=== PATIENT | male | born 1970 | race Caucasian/White ===

== ENCOUNTER 2022-12-25 03:51 | Inpatient (IN) ==
[2022-12-25] MEDS ORDERED: Ondansetron 4 mg VIAL 2 MG/ML 2 ml VIAL IV PRN (04:58)
[2022-12-25] MEDS: Pantoprazole 80 mg in NS BAG 80 MG/250 ML BAG IV SCH ×2 (06:07→16:03)
[2022-12-25 06:16] LABS: ABS Basophils 0.1 10^3/uL (0.0-0.1); ABS Monocytes 0.8 10^3/uL (0.0-1.1); ABS Neutrophils 9.9 10^3/uL (1.5-7.6); ABS Nucleated RBC 0.01 10^3/ul; Eosinophil % 0.2 %; Hematocrit 27.8 % (38-53); Hemoglobin 9.5 g/dL (13.2-16.3); Lymphocyte % 15.7 %; Mean Corpuscular Hemoglobin 28.9 pg (27-33); Mean Corpuscular Hgb Conc 34.1 g/dL (31-36); Mean Platelet Volume 6.5 fL (7.5-11.2); Nucleated Red Blood Cells % 0.1 /100 WBC (0.0-0.4); Platelet Count 204 10^3/uL (150-450); Red Blood Count 3.27 10^6/uL (4.06-5.63); Red Cell Distribution Width 16.8 % (12-17); White Blood Count 12.8 10^3/uL (3.6-10.2)
[2022-12-25] MEDS ORDERED: Flumazenil 0.5 mg/5 ml 0.1 MG/ML 5 ml VIAL IV PRN (10:24)
[2022-12-25] MEDS ORDERED: Lactated Ringers 1000 ml BAG 1,000 ML IV ONE (10:24)
[2022-12-25] MEDS ORDERED: Midazolam 10 mg/10 ml VIAL 1 mg/ml 10 ml VIAL (10 mg) IV SLOW PU ONE (10:24)
[2022-12-25] MEDS ORDERED: Naloxone 0.4 mg VIAL 0.4 mg/ml 1 ml VIAL IV PUSH PRN (10:24)
[2022-12-25] MEDS ORDERED: Lidocaine 2% JELLY 6 ML Topical TOPICAL ONE (10:24)
[2022-12-25] MEDS ORDERED: Ondansetron 4 mg VIAL 2 MG/ML 2 ml VIAL IV ONE (10:24)
[2022-12-25] MEDS ORDERED: fentaNYL 100 mcg/2 ml 50 MCG/ML VIAL IV SLOW PU ONE (10:24)
[2022-12-25 11:59] LABS: Urine Appearance Clear; Urine Bilirubin Negative (Negative); Urine Blood Negative (Negative); Urine Color Amber; Urine Glucose Negative (Negative); Urine Ketones Trace (Negative); Urine Nitrite Negative (Negative); Urine Protein 2+(100 mg/dL) (Negative); Urine Specific Gravity 1.029 (1.002-1.030); Urine Urobilinogen Negative (Negative)
[2022-12-25 12:16] LABS: Urine Bacteria Absent (Absent); Urine Red Blood Cell Trace(0-2/hpf) (Absent); Urine Squamous Epithelial Cell Present (Absent); Urine White Blood Cell Trace(0-5/hpf) (Absent)
[2022-12-25 12:29] LABS: Hematocrit 26.3 % (38-53); Hemoglobin 9.1 g/dL (13.2-16.3)
[2022-12-25 12:55] LABS: Albumin 2.2 g/dL (3.2-5.2); Calcium 7.1 mg/dL (8.6-10.3); Potassium 3.7 mmol/L (3.5-5.0); Total Bilirubin 0.9 mg/dL (0.2-1.0)
[2022-12-25 13:00] LABS: Creatinine, Serum 0.68 mg/dL (0.67-1.17); Globulin 2.3 g/dL (2-4); Total Protein 4.5 g/dL (6.4-8.9); eGFR CKD-EPI 111.1 (>60)
[2022-12-25] MEDS ORDERED: fentaNYL 100 mcg/2 ml 50 MCG/ML VIAL ONE (14:36)
[2022-12-25] MEDS ORDERED: Midazolam 10 mg/10 ml VIAL 1 mg/ml 10 ml VIAL (10 mg) ONE (14:36)
[2022-12-25 17:50] LABS: Hemoglobin 9.1 g/dL (13.2-16.3)
[2022-12-26] MEDS: Pantoprazole 80 mg in NS BAG 80 MG/250 ML BAG IV SCH ×2 (02:22→13:14)
[2022-12-26 02:38] LABS: Hematocrit 21.7 % (38-53); Hemoglobin 7.5 g/dL (13.2-16.3)
[2022-12-26 06:10] LABS: Hematocrit 21.9 % (38-53); Hemoglobin 7.6 g/dL (13.2-16.3)
[2022-12-26] MEDS ORDERED: Thiamine 100 MG/ML 2 ml VIAL 100 MG, Folic Acid IV 1 MG, Multiple Vitamin IV ADULT 10 M... IV ONE (09:17)
[2022-12-26 09:43] LABS: ABS Basophils 0.1 10^3/uL (0.0-0.1); ABS Eosinophils 0.3 10^3/uL (0.0-0.5); ABS Lymphocytes 2.5 10^3/uL (1.0-4.8); ABS Monocytes 0.7 10^3/uL (0.0-1.1); Eosinophil % 3.6 %; Hemoglobin 8.3 g/dL (13.2-16.3); Lymphocyte % 26.4 %; Mean Corpuscular Hemoglobin 29.1 pg (27-33); Mean Corpuscular Hgb Conc 34.4 g/dL (31-36); Mean Corpuscular Volume 84.7 fL (80-97); Mean Platelet Volume 6.5 fL (7.5-11.2); Platelet Count 176 10^3/uL (150-450); Red Blood Count 2.84 10^6/uL (4.06-5.63); Red Cell Distribution Width 17.2 % (12-17); White Blood Count 9.6 10^3/uL (3.6-10.2)
[2022-12-26] MEDS: NS 0.9% 1000 ml BAG 2,000 ML IV SCH (17:20)
[2022-12-27] MEDS: Pantoprazole 80 mg in NS BAG 80 MG/250 ML BAG IV SCH ×3 (09:47→22:00)
[2022-12-27 11:22] LABS: ABS Basophils 0.1 10^3/uL (0.0-0.1); ABS Eosinophils 0.3 10^3/uL (0.0-0.5); ABS Lymphocytes 2.3 10^3/uL (1.0-4.8); ABS Monocytes 0.6 10^3/uL (0.0-1.1); ABS Neutrophils 4.2 10^3/uL (1.5-7.6); Eosinophil % 3.5 %; Hematocrit 22.1 % (38-53); Hemoglobin 7.6 g/dL (13.2-16.3); Lymphocyte % 30.9 %; Mean Corpuscular Hemoglobin 29.3 pg (27-33); Mean Corpuscular Hgb Conc 34.5 g/dL (31-36); Mean Corpuscular Volume 84.9 fL (80-97); Mean Platelet Volume 6.6 fL (7.5-11.2); Nucleated Red Blood Cells % 0.1 /100 WBC (0.0-0.4); Platelet Count 198 10^3/uL (150-450); Red Cell Distribution Width 17.4 % (12-17); White Blood Count 7.5 10^3/uL (3.6-10.2)
[2022-12-27] MEDS: NS 0.9% 1000 ml BAG 2,000 ML IV SCH (12:20)
[2022-12-28 06:16] LABS: ABS Basophils 0.1 10^3/uL (0.0-0.1); ABS Eosinophils 0.3 10^3/uL (0.0-0.5); ABS Lymphocytes 2.6 10^3/uL (1.0-4.8); ABS Monocytes 0.7 10^3/uL (0.0-1.1); ABS Neutrophils 3.7 10^3/uL (1.5-7.6); ABS Nucleated RBC 0.01 10^3/ul; Hematocrit 26.3 % (38-53); Hemoglobin 8.9 g/dL (13.2-16.3); Lymphocyte % 35.3 %; Mean Corpuscular Hemoglobin 29.8 pg (27-33); Mean Corpuscular Hgb Conc 33.7 g/dL (31-36); Mean Corpuscular Volume 88.3 fL (80-97); Mean Platelet Volume 6.9 fL (7.5-11.2); Nucleated Red Blood Cells % 0.2 /100 WBC (0.0-0.4); Platelet Count 209 10^3/uL (150-450); Red Blood Count 2.97 10^6/uL (4.06-5.63); Red Cell Distribution Width 17.2 % (12-17); White Blood Count 7.4 10^3/uL (3.6-10.2)
[2022-12-28] MEDS: Pantoprazole 80 mg in NS BAG 80 MG/250 ML BAG IV SCH ×3 (06:36→16:52)
[2022-12-28] MEDS: NS 0.9% 1000 ml BAG 2,000 ML IV SCH (09:53)
[2022-12-28] MEDS: Sucralfate 1 gm SUSP 1 GM/10 ML UDC PO SCH (18:31)
[2022-12-29] MEDS: Sucralfate 1 gm SUSP 1 GM/10 ML UDC PO SCH ×3 (00:29→13:08)
[2022-12-29] MEDS: Pantoprazole 80 mg in NS BAG 80 MG/250 ML BAG IV SCH (03:01)
[2022-12-29 06:01] LABS: ABS Basophils 0.1 10^3/uL (0.0-0.1); ABS Eosinophils 0.2 10^3/uL (0.0-0.5); ABS Lymphocytes 2.3 10^3/uL (1.0-4.8); ABS Monocytes 0.5 10^3/uL (0.0-1.1); ABS Neutrophils 2.5 10^3/uL (1.5-7.6); Eosinophil % 4.3 %; Hematocrit 22.3 % (38-53); Hemoglobin 7.6 g/dL (13.2-16.3); Lymphocyte % 40.4 %; Mean Corpuscular Hemoglobin 29.9 pg (27-33); Nucleated Red Blood Cells % 0.1 /100 WBC (0.0-0.4); Platelet Count 193 10^3/uL (150-450); Red Blood Count 2.54 10^6/uL (4.06-5.63); Red Cell Distribution Width 17.2 % (12-17); White Blood Count 5.6 10^3/uL (3.6-10.2)
[2022-12-29 12:29] LABS: Hematocrit 30.1 % (38-53); Hemoglobin 9.3 g/dL (13.2-16.3)
[2022-12-29 14:07] VITALS: BP 135/85
== END 2022-12-29 14:39 | disposition home or self-care (01) | DRG 241 ==
LOC: SUATTDRO 04:48 → ICU 04:48 → MEDTELE 20:13
PROVIDERS: ADMIT Student in an Organized Health Care Education/Training Program; ATTEND Internal Medicine